=== PATIENT | male | born 1950 | race Caucasian/White ===

== ENCOUNTER 2023-10-13 06:58 | Day surgery (SDC) | payer OTHER ==
[2023-10-09 08:48] VITALS: BMI 22.3
[2023-10-13] MEDS ORDERED: Lidocaine 1% PF 5 ML VIAL ONE (08:00)
[2023-10-13] MEDS ORDERED: Ondansetron PF 4 MG/2 ML Vial ONE (08:00)
[2023-10-13] MEDS ORDERED: Dexamethasone 4 mg/ml Vial ONE (08:00)
[2023-10-13] MEDS ORDERED: fentaNYL 50 mcg/mL 1 mL Vial ONE (08:00)
[2023-10-13] MEDS ORDERED: PROPOFOL 20 ML ONE (08:00)
[2023-10-13] MEDS ORDERED: Bupivacaine 0.25% HCL 30 ML VIAL ONE (08:24)
[2023-10-13] MEDS ORDERED: EPINEPHrine 1 MG/ML VIAL ONE (08:24)
[2023-10-13] MEDS ORDERED: Bupivacaine PF 0.5% 30 ML VIAL ONE (08:24)
[2023-10-13] MEDS ORDERED: CEFAZOLIN 2 GM VIAL ONE (08:47)
[2023-10-13] MEDS ORDERED: ePHEDrine Sulfate 50 MG/10 ML VIAL ONE (09:14)
== END 2023-10-13 11:30 | disposition home or self-care (01) ==
LOC: CSHSDC 06:58
PROVIDERS: ATTEND Surgery
PROC: 0YQ50ZZ Repair Right Inguinal Region, Open Approach (ICD-10-PCS; principal; 2023-10-13)
DX: K40.90 Unilateral inguinal hernia, without obstruction or gangrene, not specified as recurrent (principal); I25.10 Atherosclerotic heart disease of native coronary artery without angina pectoris; I25.2 Old myocardial infarction; E78.00 Pure hypercholesterolemia, unspecified; I10 Essential (primary) hypertension; Z79.899 Other long term (current) drug therapy; Z95.5 Presence of coronary angioplasty implant and graft; Z98.52 Vasectomy status; Z98.890 Other specified postprocedural states; Z87.891 Personal history of nicotine dependence
CPT/HCPCS: 49505; A4306; C1781; J0171; J0665 ×2; J1100; J2405; J2704; J3010